=== PATIENT | female | born 1955 | race Caucasian/White ===

== ENCOUNTER 2016-10-23 01:27 | Emergency (ER) | payer OTHER ==
[~2016-10-23] VITALS: Ht 165.1 cm; Wt 57.0 kg
[~2016-10-23 01:27] MED LIST: ASPI81TA82 PO; BEE1CAP PO; BIOT5000 PO; CALCTAB38 PO; IBUP-232 PO; PROBCAP10 OR; RALO1TAB13 PO; SYNT125T PO; VIT250TA PO; ZINC30CA PO; [UNRECOGNIZED DRUG - OTHER] PO
[2016-10-23 01:31] VITALS: BP 142/68; PULSE 82; RESP 16; TEMP 98.6; O2SAT 97
[2016-10-23] MEDS ORDERED: LEVO.125 PO (01:35)
[2016-10-23] MEDS ORDERED: BIOTCAP PO (01:36)
[2016-10-23] MEDS ORDERED: VITA400C28 (01:36)
[2016-10-23] MEDS ORDERED: CALC1TAB87 PO (01:37)
[2016-10-23] MEDS ORDERED: EVIS60TA PO (01:38)
--- NOTE | 2016-10-23 02:51 | PD ---
HPI Chief Complaint: Oral / Dental Pain or Problem Time Seen by Provider: 02:32 Travel History International Travel<30 days: No Contact w/Intl Traveler<30days: No Traveled to known affect area: No History of Present Illness HPI This is a 61-year-old female who presents to the emergency department with swelling of the left face anterior to her left ear, that started gradually this afternoon and has been worsening throughout the evening associated with some pain and discomfort in the left face radiating down her left neck. She thought it was getting better but this evening the swelling is increased. She's been diagnosed with a possible salivary stone in the past although she never had any imaging to confirm it 8 years ago. She tried to suck on lemon, and has been milking her gland that her symptoms have not been improving. She's not had any fever and she is otherwise feeling well. She is up-to-date on all her vaccines. PFSH Past Medical History Cancer: Yes (MELANOMA) Cardiovascular Problems: No High Cholesterol: Yes Endocrine: Yes Gastrointestinal Disorders: Yes (GERD, OCCAS. CONSTIPATION) GERD: Yes Genitourinary: No Hepatitis: No Hiatal Hernia: No Immune Disorder: No Musculoskeletal: No Neurologic: No Psychiatric: No Reproductive: No Respiratory: No Thyroid Disease: Yes (THYROID) Tetanus Vaccination: > 5 Years Influenza Vaccination: Yes Menopausal: Yes : 2 Para: 2 Tubal Ligation: Yes Past Surgical History Abdominal Surgery: Yes (APPY) Body Medical Devices: NONE Cardiac Surgery: No Ear Surgery: No Endocrine Surgery: No Eye Surgery: No Gynecologic Surgery: Yes (T.L., HYSTERECTOMY) Hysterectomy: Yes Oral Surgery: Yes Thoracic Surgery: No Other Surgery: Yes (MELANOMA REMOVED LEFT THIGH) Social History Alcohol Use: Yes (OCC) Tobacco Use: Yes (1/2 PPD) Substance Use: No Allergies-Medications (Allergen,Severity, Reaction): Coded Allergies: Sulfa (Verified Allergy, Severe, 10/23/16) Reported Meds & Prescriptions Reported Meds & Active Scripts Active Ibuprofen 600 Mg Tab 600 Mg PO Q6H PRN Reported Evista (Raloxifene HCl) 60 Mg Tab 60 Mg PO DAILY Calcium 600 with Vitamin D (Calcium Carbonate-Cholecalciferol) 600-400 mg-Unit Tab 1 Tab PO DAILY Biotin 5 Mg Cap 5 Mg PO Vitamin D (Cholecalciferol) 400 Unit Cap Synthroid (Levothyroxine Sodium) 125 Mcg Tab 125 Mcg PO DAILY [Assimazyme] 1 Cap PO BID Review of Systems Except as stated in HPI: all other systems reviewed are Neg Physical Exam Narrative GENERAL: Well-nourished, well-developed patient. SKIN: Warm and dry. HEAD: Normocephalic. EYES: No scleral icterus. No injection or drainage. ENT: Swelling in the left face anterior to the ear in the area of the parotid gland, tender to palpation, tender to palpation in the left submandibular region no mass or lymphadenopathy. No stones appreciated in Citlali's duct NECK: Supple, trachea midline. CARDIOVASCULAR: Regular rate and rhythm without murmurs. RESPIRATORY: Breath sounds equal bilaterally. No accessory muscle use. GASTROINTESTINAL: Abdomen soft, non-tender, nondistended. MUSCULOSKELETAL: No cyanosis, or edema. Data Data Last Documented VS Vital Signs Date Time Temp Pulse Resp B/P Pulse Ox O2 Delivery O2 Flow Rate FiO2 10/23/16 01:31 98.6 82 16 142/68 97 Room Air MDM Medical Decision Making Medical Screen Exam Complete: Yes Emergency Medical Condition: Yes Differential Diagnosis Sialoadenitis, viral sialoadenitis, bacterial sialoadenitis, salivary gland tumor Narrative Course This is a very well-appearing 61-year-old female who presents to the emergency department with swelling in the left side of her face in the region of the parotid gland. She has been told in the past that she may have had sialoadenitis. She's been trying conservative measures but she feels like her symptoms are worsening. She is afebrile and has no other constitutional symptoms. I had a long conversation with the patient. I suspect this is acute sialoadenitis. I told her the only way to confirm this would be to do CT imaging. I told her it also would be reasonable to continue conservative management in the event that the stone may pass. She is not febrile or systemically ill to suggest bacterial or viral sialadenitis at this time. She elects for conservative management and will follow-up with Dr. Romero on Wednesday for imaging if her symptoms have not improved. Diagnosis Primary Impression: Sialadenitis Patient Instructions: General Instructions, Sialoadenitis (ED) Additional Instructions: If you develop fever, chills, increasing swelling or redness, or difficulty swallowing or breathing return to the emergency department. Med/Other Pt SpecificInfo: No Change to Meds Disposition: 01 DISCHARGE HOME Condition: Stable Martha Montgomery MD Oct 23, 2016 02:51
== END 2016-10-23 03:01 | disposition home or self-care (01) ==
LOC: NEPE 01:27
DX: K11.20 Sialoadenitis, unspecified (principal); F17.200 Nicotine dependence, unspecified, uncomplicated
CPT/HCPCS: 99283

== ENCOUNTER → 2017-01-18 | Outpatient (CLI) | payer OTHER ==
[~2017-01-18] MED LIST changes: -ASPI81TA82 PO; -BEE1CAP PO; -BIOT5000 PO; +BIOTCAP PO; +CALC1TAB87 PO; -CALCTAB38 PO; +EVIS60TA PO; +LEVO.125 PO; -PROBCAP10 OR; -RALO1TAB13 PO; -SYNT125T PO; -VIT250TA PO; +VITA400C28; -ZINC30CA PO
[2017-01-18 07:41] LABS: BACTERIA, URINE RARE /hpf; BLOOD, URINE NEG (NEG); GLUCOSE,URINE NEG (NEG); HYALINE CAST, URINE 1 /lpf (RARE); KETONE, URINE NEG (NEG); NITRITE,URINE NEG (NEG); SQUAMOUS EPITHELIAL CELL URINE 1 /hpf (0-5); URINE COLOR YELLOW (YELLW/STRAW)
[2017-01-18 08:01] LABS: ALKALINE PHOSPHATASE 59 U/L (45-117); ALT (GPT) 33 U/L (10-53); ANION GAP 6 MEQ/L (5-15); AST (GOT) 20 U/L (15-37); BICARBONATE 28.9 MEQ/L (21.0-32.0); BLOOD UREA NITROGEN 16 MG/DL (7-18); CHLORIDE 107 MEQ/L (98-107); GLOMERULAR FILTRATION RATE 80 ML/MIN (>89); GLUCOSE,FASTING 103 MG/DL (74-99); HDL CHOLESTEROL 58.2 MG/DL (40.0-60.0); LDL CHOLESTEROL 80 MG/DL (0-99); LDL CHOLESTEROL DIRECT 94 MG/DL (0-99); POTASSIUM 4.3 MEQ/L (3.5-5.1); SODIUM (NA) 142 MEQ/L (136-145); TOTAL BILIRUBIN ADULT 0.4 MG/DL (0.2-1.0)
== END ==
LOC: CLAB 07:01
PROVIDERS: ATTEND Family Medicine
DX: E78.5 Hyperlipidemia, unspecified (principal); E55.9 Vitamin D deficiency, unspecified
CPT/HCPCS: 36415; 80053; 80061; 81001; 82306; 83721; 84443

== ENCOUNTER → 2017-03-15 | Outpatient (CLI) | payer OTHER ==
[2017-03-15 09:46] LABS: ANION GAP 8 MEQ/L (5-15); BICARBONATE 26.8 MEQ/L (21.0-32.0); BLOOD UREA NITROGEN 17 MG/DL (7-18); CHLORIDE 107 MEQ/L (98-107); GLOMERULAR FILTRATION RATE 101 ML/MIN (>89); GLUCOSE,FASTING 102 MG/DL (74-99); POTASSIUM 4.4 MEQ/L (3.5-5.1); SODIUM (NA) 142 MEQ/L (136-145)
[2017-03-15 09:55] LABS: ALKALINE PHOSPHATASE 63 U/L (45-117); ALT (GPT) 39 U/L (10-53); AST (GOT) 20 U/L (15-37); HDL CHOLESTEROL 58.8 MG/DL (40.0-60.0); LDL CHOLESTEROL 83 MG/DL (0-99); LDL CHOLESTEROL DIRECT 82 MG/DL (0-99); TOTAL BILIRUBIN ADULT 0.4 MG/DL (0.2-1.0)
[2017-03-15 10:01] LABS: CREATINE KINASE 63 U/L (26-192)
[2017-03-15 11:39] LABS: BLOOD, URINE NEG (NEG); GLUCOSE,URINE NEG (NEG); KETONE, URINE NEG (NEG); NITRITE,URINE NEG (NEG); SQUAMOUS EPITHELIAL CELL URINE 1 /hpf (0-5); URINE COLOR YELLOW (YELLW/STRAW)
== END ==
LOC: CLAB 08:48
PROVIDERS: ATTEND Family Medicine
DX: E55.9 Vitamin D deficiency, unspecified (principal); E78.5 Hyperlipidemia, unspecified
CPT/HCPCS: 36415; 80053; 80061; 81001; 82306; 82550; 83721; 84443

== ENCOUNTER → 2017-04-09 | Outpatient (CLI) | payer OTHER ==
--- NOTE | 2017-04-12 13:49 | RSPPFT ---
DATE OF PROCEDURE: 04/09/17 COMMENTS: The forced vital capacity, FEV1, FEV1/FVC ratio and FEF 25-75 are all normal. There is no significant improvement after bronchodilator. The FVC is normal with a reduced TLC an increased RV/TLC ratio. IMPRESSION: This is a normal pulmonary function study. The diffusion capacity is normal when corrected for alveolar volume.
== END ==
LOC: HRSP 12:00
PROVIDERS: ATTEND Family Medicine
DX: R06.2 Wheezing (principal)
CPT/HCPCS: 94060; 94726; 94729

== ENCOUNTER → 2017-06-16 | Outpatient (CLI) | payer OTHER | LOC: CLAB 10:07 | PROVIDERS: ATTEND Family Medicine | DX: E78.5 Hyperlipidemia, unspecified (principal) | CPT/HCPCS: 36415; 84443 ==

== ENCOUNTER → 2017-06-23 | Outpatient (CLI) | payer OTHER ==
[2017-06-23 13:40] LABS: BLOOD, URINE NEG (NEG); GLUCOSE,URINE NEG (NEG); KETONE, URINE NEG (NEG); MUCUS URINE FEW /lpf (OCC); NITRITE,URINE NEG (NEG); SQUAMOUS EPITHELIAL CELL URINE <1 /hpf (0-5); URINE COLOR LIGHT-YELLOW (YELLW/STRAW)
== END ==
LOC: CLAB 12:43
PROVIDERS: ATTEND Family Medicine
DX: R39.9 Unspecified symptoms and signs involving the genitourinary system (principal)
CPT/HCPCS: 81001; 87086

== ENCOUNTER → 2017-12-21 | Outpatient (CLI) | payer OTHER ==
[~2017-12-21] MED LIST changes: -EVIS60TA PO; +RALO60 PO
[2017-12-21 10:51] LABS: ALBUMIN 3.6 GM/DL (3.4-5.0); AST (GOT) 20 U/L (15-37); BICARBONATE 30.3 MEQ/L (21.0-32.0); BLOOD UREA NITROGEN 15 MG/DL (7-18); CALCIUM 8.8 MG/DL (8.5-10.1); CHLORIDE 104 MEQ/L (98-107); CHOLESTEROL 141 MG/DL (120-200); CREATININE 0.78 MG/DL (0.50-1.00); GLOMERULAR FILTRATION RATE 75 ML/MIN (>89); GLUCOSE,FASTING 99 MG/DL (74-99); SODIUM (NA) 141 MEQ/L (136-145); TRIGLYCERIDES 137 MG/DL (42-150)
[2017-12-21 11:02] LABS: ALKALINE PHOSPHATASE 54 U/L (45-117); ALT (GPT) 42 U/L (10-53); CHOLESTEROL/ HDL RATIO 3.19 RATIO; HDL CHOLESTEROL 44.2 MG/DL (40.0-60.0); LDL CHOLESTEROL 69 MG/DL (0-99); LDL CHOLESTEROL DIRECT 85 MG/DL (0-99); TOTAL BILIRUBIN ADULT 0.3 MG/DL (0.2-1.0); TOTAL PROTEIN 7.6 GM/DL (6.4-8.2)
== END ==
LOC: CLAB 10:02
PROVIDERS: ATTEND Family Medicine
DX: E03.9 Hypothyroidism, unspecified (principal); E78.5 Hyperlipidemia, unspecified
CPT/HCPCS: 36415; 80053; 80061; 83721; 84443